=== PATIENT | female | born 1940 ===

== ENCOUNTER 2017-06-11 13:47 | Emergency (ER) | payer MEDICARE ==
[2017-06-11 13:50] VITALS: PULSE 86
[2017-06-11 13:53] VITALS: BMI 44.9
[2017-06-11 14:05] VITALS: BP 171/109; PULSE 93; RESP 18; TEMP 98.1; O2SAT 97
--- NOTE | 2017-06-11 14:41 | ED PDOC ---
Arrival/HPI - General Chief Complaint: ENT Problem Time Seen by Provider: 06/11/17 14:18 - History of Present Illness Narrative History of Present Illness (Text): 76 year old F c Past medical history Afib on Pradaxa p/w epistaxis x month. Patient states she has been having bleeding from both nostrils recurrently for a month. She states she stopped taking Pradaxa a month ago because of the symptoms. She states she told her PMD Amrik about her epistaxis and had blood work drawn 2 weeks ago which showed normal Hb. Patient declines repeat blood work now. No current epistaxis in Emergency department. Denies chest pain, palpitations, numbness, motor weakness. Past Medical History - Infectious Disease Hx of Infectious Diseases: None - Tetanus Immunization Tetanus Immunization: Unknown - Cardiac Hx Cardiac Disorders: Yes Hx Atrial Fibrillation: Yes Hx Congestive Heart Failure: Yes Hx Hypertension: Yes - Pulmonary Hx Respiratory Disorders: No - Neurological Hx Neurological Disorder: No - HEENT Hx HEENT Disorder: No - Endocrine/Metabolic Hx Diabetes Mellitus Type 2: Yes Hx Hypothyroidism: Yes - Hematological/Oncological Hx Blood Disorders: Yes (SEPSIS 3-) - Integumentary Hx Dermatological Disorder: No - Musculoskeletal/Rheumatological Hx Falls: Yes - Gastrointestinal Hx Gastrointestinal Disorders: No - Genitourinary/Gynecological Hx Genitourinary Disorders: No Hx Reproductive Disorders: No - Psychiatric Hx Depression: Yes Hx Substance Use: No - Past Surgical History Past Surgical History: Unable to Obtain - Surgical History Hx Cholecystectomy: Yes Other/Comment: 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 - Anesthesia Hx Anesthesia: Yes Hx Anesthesia Reactions: No Hx Malignant Hyperthermia: No - Suicidal Assessment Feels Threatened In Home Enviroment: No Family/Social History Family/Social History: No Known Family HX Smoking Status: Never Smoked Hx Alcohol Use: No Hx Substance Use: No Allergies/Home Meds Allergies/Adverse Reactions: Allergies No Known Allergies Allergy (Verified 12/25/16 14:52) Home Medications: Home Meds Medication Instructions Recorded Confirmed Insulin Detemir [Levemir] 8 unit SC ACBD 05/23/13 06/11/17 Digoxin [Lanoxin] 0.25 mg PO DAILY 06/11/17 06/11/17 Levothyroxine [Synthroid] 75 mcg PO ACB 06/11/17 06/11/17 Review of Systems - Physician Review All systems were reviewed & negative as marked: Yes - Review of Systems Respiratory: absent: SOB Cardiovascular: absent: Chest Pain Physical Exam - Physical Exam Narrative Physical Exam (Text): Gen: NAD Head: AT Eyes: No scleral icterus ENT: No septal hematoma. No current bleeding. Neck: Supple Neuro: Alert, moves all extremities. Vital Signs Temp Pulse Resp BP Pulse Ox 06/11/17 14:02 98.1 F 93 H 18 171/109 H 97 Medical Decision Making ED Course and Treatment: Advised holding pressure, humidifier, f/u ENT. Disposition/Present on Arrival - Present on Arrival Any Indicators Present on Arrival: Yes History of DVT/PE: No History of Uncontrolled Diabetes: Yes Urinary Catheter: No History of Decub. Ulcer: No History Surgical Site Infection Following: None - Disposition Have Diagnosis and Disposition been Completed?: Yes Diagnosis: Epistaxis Disposition: HOME/ ROUTINE Disposition Time: 14:40 Patient Plan: Discharge Patient Problems: Current Active Problems Problem Status Onset Epistaxis Acute Condition: STABLE Discharge Instructions (ExitCare): Nosebleeds Referrals: Jeferson Beverly DO [Staff Provider] - Follow up with primary Forms: [employer] (Khmer)
== END 2017-06-11 14:52 | disposition home or self-care (01) ==
LOC: ED 13:47
DX: R04.0 Epistaxis (principal); I48.91 Unspecified atrial fibrillation; E11.9 Type 2 diabetes mellitus without complications; I10 Essential (primary) hypertension; I50.9 Heart failure, unspecified